=== PATIENT | female | born 1980 | race Caucasian/White ===

== ENCOUNTER 2016-08-25 16:36 | Emergency (ER) | payer OTHER ==
[~2016-08-25 16:36] MED LIST: ALPRAZOLAM PO; AMBIEN PO; AMBIEN10 MG PO; EFFEXOR PO; FLEXERIL10 MG PO; FLONASE 0.05% N16 G1; KLONOPIN PO; LO/OVRAL-281 TAB PO; LORTAB 7.5-5001 TAB PO; NAPROSYN PO; NORCO 10-325 TA1 TAB PO; PRISTIQ50 MG PO; PROZAC PO; TOPAMAX PO; ULTRAM PO; VICODIN 5/500 T1 TAB PO; VOLTAREN75 MG PO; ZOFRAN ODT4 MG/UDTAB PO; ZOLOFT PO
[2016-09-26] MEDS ORDERED: RISPERIDONE (15:11)
[2016-09-29] MEDS ORDERED: NAPROXEN (03:40)
[2016-09-29] MEDS ORDERED: FLEXERIL (03:40)
== END 2016-08-25 17:31 | disposition left against medical advice (07) ==
LOC: SED 16:36
DX: R10.84 Generalized abdominal pain (principal); R11.2 Nausea with vomiting, unspecified; R19.7 Diarrhea, unspecified; F41.9 Anxiety disorder, unspecified; F32.9 Major depressive disorder, single episode, unspecified; F17.210 Nicotine dependence, cigarettes, uncomplicated; Z79.899 Other long term (current) drug therapy
CPT/HCPCS: 99283

== ENCOUNTER 2016-09-26 17:09 | Emergency (ER) | payer OTHER ==
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
[~2016-09-26 17:09] MED LIST changes: +RISPERIDONE
[2016-09-29] MEDS ORDERED: NAPROXEN (03:40)
[2016-09-29] MEDS ORDERED: FLEXERIL (03:40)
== END 2016-09-26 18:24 | disposition home or self-care (01) ==
LOC: SED 17:09
DX: S13.4XXA Sprain of ligaments of cervical spine, initial encounter (principal); S40.011A Contusion of right shoulder, initial encounter; F31.9 Bipolar disorder, unspecified; V43.52XA Car driver injured in collision with other type car in traffic accident, initial encounter
CPT/HCPCS: 71020; 73030; 99284

== ENCOUNTER 2016-09-29 04:13 | Emergency (ER) | payer OTHER ==
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
[~2016-09-29 04:13] MED LIST changes: +FLEXERIL; +NAPROXEN
== END 2016-09-29 04:50 | disposition home or self-care (01) ==
LOC: SED 04:13
DX: S43.401A Unspecified sprain of right shoulder joint, initial encounter (principal); S16.1XXA Strain of muscle, fascia and tendon at neck level, initial encounter; F41.9 Anxiety disorder, unspecified; S46.911A Strain of unspecified muscle, fascia and tendon at shoulder and upper arm level, right arm, initial encounter; V49.9XXA Car occupant (driver) (passenger) injured in unspecified traffic accident, initial encounter
CPT/HCPCS: 71020; 72125; 99284